=== PATIENT | male | born 1970 | race Hispanic/Latino ===

== ENCOUNTER → 2018-07-05 | Outpatient (CLI) | payer OTHER ==
--- NOTE | 2018-07-05 17:05 | Diagnostic Imaging Report ---
Exam: Os calcis History: Pain Comparison: None. Findings: No fracture or malalignment. Joint spaces preserved. Small dorsal plantar calcaneal enthesophytes. Impression: No acute osseous abnormality Signed by: Dr. José Du M.D. on 07/05/2018 5:02 PM
== END ==
LOC: RAD 16:39
PROVIDERS: ATTEND Family Medicine
DX: M79.672 Pain in left foot (principal); M79.671 Pain in right foot